=== PATIENT | female | born 1940 | race Caucasian/White ===

== ENCOUNTER 2016-06-02 13:07 | Emergency (ER) | payer MEDICARE, OTHER ==
[2016-06-02 11:25] LABS: BASOPHILS 0.8 %; BASOPHILS ABSOLUTE 0.06 10/3/uL (0.0-0.16); EOSINOPHILS 1.9 %; EOSINOPHILS ABSOLUTE 0.15 10/3/uL (0.0-0.53); IMMATURE GRANULOCYTES 0.3 %; IMMATURE GRANULOCYTES ABSOLUTE 0.02 10/3/uL (0.0-0.11); LYMPHOCYTES 25.3 %; MEAN CORPUS HGB CONC 33.5 g/dL (32.0-36.0); MEAN CORPUSCULAR HEMOGLOB 29.5 pg (26.0-34.0); MEAN PLATELET VOLUME 9.4 fL (9.2-13.0); MONOCYTES 9.5 %; MONOCYTES ABSOLUTE 0.75 10/3/uL (0.21-1.20); NEUTROPHILS 62.2 %; NEUTROPHILS ABSOLUTE 4.92 10/3/uL (2.02-8.40); PLATELET COUNT 374 10/3/uL (150-400); RBC DISTRIBUTION WIDTH 14.9 % (12.0-16.0); RED CELL COUNT 4.41 10/6/uL (4.0-5.6)
[2016-06-02 11:26] LABS: ER CBC TAT 0 Hrs 05 Mins; HEMATOCRIT 38.8 % (36.0-48.0); MANUAL DIFF NO %; WHITE BLOOD CELLS 7.9 10/3/uL (4.5-10.5)
[2016-06-02 11:32] LABS: INTERNATIONAL NORMAL RATI 1.4 UNITS (-)
[2016-06-02 11:33] LABS: PARTIAL THROMBO TIME 33.1 SEC (22.5-37.2)
[2016-06-02 11:43] LABS: A/G RATIO 1.1 (0.7-1.9); ALBUMIN 3.9 G/DL (3.5-5.0); ALKALINE PHOSPHATASE 135 U/L (45-117); BUN (BLOOD UREA NITROGEN) 19 MG/DL (6-23); CALCIUM, SERUM 9.2 MG/DL (8.5-10.4); CHEST PAIN PROFILE TAT 0 Hrs 22 Mins; CHLORIDE, SERUM 99 MMOL/L (96-112); CO2 (CARBON DIOXIDE) 28 MMOL/L (24-34); CREATININE 1.08 MG/DL (0.55-1.02); GFR AFRICAN AMERICAN 58 ML/MIN (>=60); GFR NON AFRICAN AMERICAN 50 ML/MIN (>=60); GLOBULIN 3.5 G/DL (2.5-4.1); GLUCOSE, SERUM 169 MG/DL (60-99); POTASSIUM, SERUM 4.1 MMOL/L (3.5-5.3); SGOT(AST) 26 U/L (5-40); SGPT(ALT) 23 U/L (5-65); SODIUM, SERUM 138 MMOL/L (135-148); TOTAL BILIRUBIN 0.3 MG/DL (0-1.2); TOTAL PROTEIN 7.4 G/DL (6.0-8.5); TROPONIN I <0.02 NG/ML (<0.05)
[2016-06-02 11:53] LABS: ASCORBIC ACID (UR NOT ORDER) NEG (NEG); BILIRUBIN, URINE NEGATIVE (NEG); ER URINALYSIS TAT 0 Hrs 14 Mins; KETONE, URINE NEGATIVE (NEG); LEUKOCYTE ESTERASE(NOT OR NEG (NEG); NITRITE (URINE) NEG (NEG); WBC (NOT ORDERED) (RFLEX) 1 (0-5)
[2016-06-02 12:50] LABS: INFLUENZA A SCREEN NEGATIVE (NEGATIVE); INFLUENZA B SCREEN NEGATIVE (NEGATIVE)
[~2016-06-02 13:07] MED LIST: ASAB PO; CENESTIN0.3 MG PO; DIOVAN HC2 PO; FLECAINIDE100 MG PO; LEVOTHYROXIN25 MCG PO; LEVOTHYROXIN75 MCG PO; LOPID6 PO; MOMUD PO; PCET PO; PRILOSEC OTC20 MG PO; TRANXENE 3.753.75 MG PO
[2016-07-29] MEDS ORDERED: ELIQUIS 5 MG TAB5 MG PO (13:35)
[2016-07-29] MEDS ORDERED: Z100 PO (13:55)
[2016-07-29] MEDS ORDERED: MTX2.5 PO (13:55)
[2016-07-29] MEDS ORDERED: PLAQ200B PO (13:56)
[2016-07-29] MEDS ORDERED: 8 HOUR650 MG PO (13:56)
== END 2016-06-02 13:37 | disposition home or self-care (01) ==
LOC: ER 13:07
PROVIDERS: Nurse Practitioner Family
DX: B34.9 Viral infection, unspecified (principal); I12.9 Hypertensive chronic kidney disease with stage 1 through stage 4 chronic kidney disease, or unspecified chronic kidney disease; N18.9 Chronic kidney disease, unspecified; K21.9 Gastro-esophageal reflux disease without esophagitis; F41.9 Anxiety disorder, unspecified; Z88.2 Allergy status to sulfonamides; Z88.1 Allergy status to other antibiotic agents; Z91.048 Other nonmedicinal substance allergy status; Z79.899 Other long term (current) drug therapy; Z79.82 Long term (current) use of aspirin
CPT/HCPCS: 71010; 74176; 80048; 80053; 81001; 83690; 83735; 84484; 85025; 85610; 85730; 87230; 87804; 93005; 99285

== ENCOUNTER 2016-08-01 07:41 | Inpatient (IN) | payer MEDICARE, OTHER ==
[2016-07-19 13:42] LABS: BASOPHILS 0.4 %; BASOPHILS ABSOLUTE 0.03 10/3/uL (0.0-0.16); EOSINOPHILS ABSOLUTE 0.08 10/3/uL (0.0-0.53); HEMATOCRIT 36.3 % (36.0-48.0); HEMOGLOBIN 12.1 g/dL (12.0-16.0); IMMATURE GRANULOCYTES 0.4 %; IMMATURE GRANULOCYTES ABSOLUTE 0.03 10/3/uL (0.0-0.11); LYMPHOCYTES 27.8 %; LYMPHOCYTES ABSOLUTE 2.31 10/3/uL (0.67-4.30); MANUAL DIFF NO %; MEAN CORPUS HGB CONC 33.3 g/dL (32.0-36.0); MEAN CORPUSCULAR VOLUME 89.9 fL (80-100); MEAN PLATELET VOLUME 9.4 fL (9.2-13.0); MONOCYTES 8.1 %; MONOCYTES ABSOLUTE 0.67 10/3/uL (0.21-1.20); NEUTROPHILS 62.3 %; NEUTROPHILS ABSOLUTE 5.18 10/3/uL (2.02-8.40); PLATELET COUNT 389 10/3/uL (150-400); RBC DISTRIBUTION WIDTH 15.4 % (12.0-16.0); RED CELL COUNT 4.04 10/6/uL (4.0-5.6); WHITE BLOOD CELLS 8.3 10/3/uL (4.5-10.5)
[2016-07-19 13:48] LABS: ASCORBIC ACID (UR NOT ORDER) NEG (NEG); BILIRUBIN, URINE NEGATIVE (NEG); INTERNATIONAL NORMAL RATI 1.3 UNITS (-); KETONE, URINE NEGATIVE (NEG); LEUKOCYTE ESTERASE(NOT OR SMALL (NEG); PROTIME (NOT ORD) 15.7 SEC (12.0-14.5); WBC (NOT ORDERED) (RFLEX) 18 (0-5)
[2016-07-19 14:04] LABS: A/G RATIO 1.3 (0.7-1.9); BUN (BLOOD UREA NITROGEN) 17 MG/DL (6-23); CALCIUM, SERUM 9.7 MG/DL (8.5-10.4); CHLORIDE, SERUM 101 MMOL/L (96-112); CO2 (CARBON DIOXIDE) 28 MMOL/L (24-34); CREATININE 0.91 MG/DL (0.55-1.02); GFR AFRICAN AMERICAN 72 ML/MIN (>=60); GFR NON AFRICAN AMERICAN 62 ML/MIN (>=60); POTASSIUM, SERUM 4.2 MMOL/L (3.5-5.3); SGOT(AST) 16 U/L (5-40); SGPT(ALT) 20 U/L (5-65); SODIUM, SERUM 138 MMOL/L (135-148); TOTAL BILIRUBIN 0.3 MG/DL (0-1.2)
[2016-07-19 14:05] LABS: ALKALINE PHOSPHATASE 96 U/L (45-117); GLUCOSE, SERUM 113 MG/DL (60-99)
--- NOTE | ~2016-08-01 | OP ---
Record Of Operation [facility] [address] [place]. [address] NAME: NATA ROWAN : 40 STATUS : ADM IN PAT#: [id number] AGE: 75 ADM/REG DATE : 08/01/16 MR#: [id number] REPORT SERV DATE: 08/01/16 DICTATED BY: IBETH ZAMORA DATE: 08/01/16 REPORT STATUS : Draft TRANSCRIBED BY: MODL DATE: 08/01/16 DATE OF PROCEDURE: 08/01/2016 PREOPERATIVE DIAGNOSIS: Severe right hip DJD. POSTOPERATIVE DIAGNOSIS: Severe right hip DJD. PROCEDURE: Uncemented total hip arthroplasty, Tri-Lock. SIDE: Right. GAS SINGER: ANESTHESIA: See chart. SIZE: See chart. ESTIMATED BLOOD LOSS: About 100 mL. INDICATIONS FOR SURGERY: PROCEDURE: The patient was taken to the operating room and placed supine on the table without incident. Anesthetic was induced per the anesthesiologist. A Malloy catheter was placed by the nurse in the standard sterile technique. The correct side for the procedure was identified by preoperative markings and matched with the consent form. All personnel in the room were in agreement regarding the procedure, patient, and side. The patient was then carefully positioned and carefully padded and prepped and draped in the normal sterile fashion. The patient received prophylactic preoperative antibiotics at the appropriate time. The preoperative x-ray was brought up on the monitor. Again, this was reviewed with the staff in the room. According with the preoperative plan, and angled, an anterolateral incision was made centered over the trochanter extending from proximal posterior to distal anterior. Electrocautery was used to maintain meticulous hemostasis. The IT band was split in line with its fibers. A Charnley retractor was placed over saline moistened laps. A standard anterolateral approach to the hip was carried out dissecting in line with the vastus medialis fibers lifting the inferior 20% of the vastus medialis, proximally the interior 20% of the gluteus medius and gluteus minimus tendons off the anterior capsule. Periosteal elevator was used to elevate soft tissue gently directly off the proximal anterior femoral bone. Appropriate retractors were carefully placed. Complete anterior capsulectomy was performed. The hip was then carefully dislocated with a combination of traction maneuver by the assistant executive housekeeper and scooping the ball out of the socket with a Hohmann. A femoral neck osteotomy was marked according to what had been preoperatively planned with a broach as a template. The distance for the femoral neck osteotomy was measured with a ruler. A femoral neck osteotomy was made with an oscillating saw under appropriate retraction. Meticulous hemostasis was again obtained. The leg was then brought up out of the anterior bag and Record Of Operation [facility] [address] [place]. [address] NAME: NATA ROWAN : 40 STATUS : ADM IN PAT#: [id number] AGE: 75 ADM/REG DATE : 08/01/16 MR#: [id number] REPORT SERV DATE: 08/01/16 DICTATED BY: IBETH ZAMORA DATE: 08/01/16 REPORT STATUS : Draft TRANSCRIBED BY: KEILA DATE: 08/01/16 positioned with the lower extremity in external rotation and slight flexion. Acetabular retractors were placed carefully palpating to be sure that they were directly on the bone. The acetabular labrum was excised with electrocautery and rongeur. Pulvinar fat was removed with a large curette and rongeur and again meticulous hemostasis was obtained. Sequential reamers were used in the acetabulum to 1 mm. less than the final size which was chosen. This was felt to give excellent interference fit. The acetabular fossa was then copiously irrigated with pulsatile lavage and actual acetabular component was placed and impacted and checked to make sure it was down snug. The overall alignment was checked. The acetabular economic development coordinator was then removed. Screws were placed in the standard fashion. A drill, depth gauge and self tapping screw placement taking care not to plunge as the drill holes were carefully placed. A trial liner was then placed and attention directed back to the proximal femur. The leg was placed back into the anterior bag. The proximal femur was prepared using a box chisel following by a T-handled reamer to determine the intramedullary alignment. This was followed by sequential broaches up to the final broach. Once it was seated in the appropriate position, a Calcar reamer was used to plane the proximal femur. Trial reduction was then done with a trial prosthetic ball and neck. A straight edge was used to compare the tip of the trochanter to center of the ball relationship to what had been noted on the preoperative x-ray. Careful reduction was then done of the total hip. Palpation was done to ascertain and compare leg lengths by palpating the nonoperative leg and also by checking soft tissue tension. The stability of the hip was checked in full extension with full external rotation and in full flexion with adduction, flexion and internal rotation. The hip was then redislocated with a bone hook. The femoral trial and femoral broach were removed. The acetabulum was then prepared under appropriate retraction by removing the trial liner. A central hole eliminator was placed and tightened. The shell was irrigated out. The actual insert was placed and impacted and then checked to be sure it was down snug with a joker. The leg was again positioned in the bag. The proximal femur exposed, irrigated and the actual thermal prosthesis was taken from the transportation services representative and impacted. Once it was down, the trunnion was cleansed with a wet and dry lap and the prosthetic thermal head was placed and impacted and checked to be sure it was down snug. The acetabulum was irrigated and reduction was obtained. Again, we checked soft tissue tension, leg length and stability as described above. The hip was closed in a layered fashion with a 5 mm. Mersilene tape placed through a single drill hole in the proximal anterior/superior trochanter reattaching the gluteus medius and minimus fibers. The vastus lateralis, gluteus medius, and gluteus minimus were then closed in a sleeve. Drain was placed between the vastus and the IT band exiting distally anteriorly. The IT band was closed. Subcutaneous closure and skin closure were then obtained. A sterile dressing was applied. The patient was carefully positioned into a supine position and then awakened. The patient was then carefully transferred to the stretcher to be returned to the postoperative care unit without incident. COMPLICATION: None. SPECIMENS: Right femoral head. Record Of Operation [facility] [address] [place]. [address] NAME: NATA ROWAN : 40 STATUS : ADM IN PAT#: [id number] AGE: 75 ADM/REG DATE : 08/01/16 MR#: [id number] REPORT SERV DATE: 08/01/16 DICTATED BY: IBETH ZAMORA DATE: 08/01/16 REPORT STATUS : Draft TRANSCRIBED BY: KEILA DATE: 08/01/16 WTB/KEILA Yared Zamora M.D. / [id number] CC: Yared Zamora M.D.
[~2016-08-01 07:41] MED LIST changes: +8 HOUR650 MG PO; +ELIQUIS 5 MG TAB5 MG PO; +MTX2.5 PO; +PLAQ200B PO; +Z100 PO
[2016-08-02 04:49] LABS: HEMATOCRIT 30.1 % (36.0-48.0)
[2016-08-02 04:58] LABS: INTERNATIONAL NORMAL RATI 1.1 UNITS (-); PROTIME (NOT ORD) 14.5 SEC (12.0-14.5)
[2016-08-02 05:01] LABS: BUN (BLOOD UREA NITROGEN) 20 MG/DL (6-23); CALCIUM, SERUM 8.9 MG/DL (8.5-10.4); CHLORIDE, SERUM 100 MMOL/L (96-112); CO2 (CARBON DIOXIDE) 28 MMOL/L (24-34); CREATININE 0.86 MG/DL (0.55-1.02); GFR AFRICAN AMERICAN 77 ML/MIN (>=60); GFR NON AFRICAN AMERICAN 66 ML/MIN (>=60); GLUCOSE, SERUM 109 MG/DL (60-99); POTASSIUM, SERUM 4.6 MMOL/L (3.5-5.3); SODIUM, SERUM 134 MMOL/L (135-148)
[2016-08-03 04:32] LABS: HEMOGLOBIN 8.6 g/dL (12.0-16.0)
[2016-08-03 04:40] LABS: INTERNATIONAL NORMAL RATI 1.3 UNITS (-); PROTIME (NOT ORD) 16.4 SEC (12.0-14.5)
[2016-08-03 04:41] LABS: HEMATOCRIT 25.9 % (36.0-48.0)
[2016-08-03] MEDS ORDERED: D.O.S.100 MG PO (13:25)
[2016-08-03] MEDS ORDERED: FESO4 PO (13:26)
[2016-08-03] MEDS ORDERED: MULTIPLE VIT PO (13:27)
[2016-08-03] MEDS ORDERED: C2 PO (13:30)
[2016-08-03] MEDS ORDERED: C1 PO (13:32)
[2016-08-03] MEDS ORDERED: ULTRAM50 PO (13:33)
[2016-08-03] MEDS ORDERED: ZOFRAN4 PO (13:33)
== END 2016-08-03 15:32 | disposition home or self-care (01) | DRG 470 ==
LOC: SDC/OF 07:41 → PACU 12:28 → 1SO 14:28
PROVIDERS: Specialist
PROC: 0SR902A Replacement of Right Hip Joint with Metal on Polyethylene Synthetic Substitute, Uncemented, Open Approach (ICD-10-PCS; principal; 2016-08-01 09:30)
DX: M16.11 Unilateral primary osteoarthritis, right hip (principal); I49.5 Sick sinus syndrome; M32.9 Systemic lupus erythematosus, unspecified; I48.91 Unspecified atrial fibrillation; E03.9 Hypothyroidism, unspecified; I10 Essential (primary) hypertension; E78.5 Hyperlipidemia, unspecified; M10.9 Gout, unspecified; K21.9 Gastro-esophageal reflux disease without esophagitis; M06.9 Rheumatoid arthritis, unspecified; Z88.5 Allergy status to narcotic agent; Z79.01 Long term (current) use of anticoagulants; Z79.1 Long term (current) use of non-steroidal anti-inflammatories (NSAID); Z79.899 Other long term (current) drug therapy; Z95.0 Presence of cardiac pacemaker; Z88.1 Allergy status to other antibiotic agents
CPT/HCPCS: 36415; 71020; 72170; 80048; 80053; 81001; 85014; 85018; 85025; 85610; 86850; 86900; 86901; 87077; 87086; 87186; 87641; 88304; 88311; 97110-GP; 97116-GP; 97161-GP; 97165-GO; 97530-GP; A9270-GY; C1713; C1776; G8978-CK-GP; G8979-CI-GP; G8987-CK-GO; G8988-CJ-GO; J0690; J1170; J1580; J1885; J2270; J2405; J2710; J2795; J3010